=== PATIENT | female | born 1955 | race Two or more races ===

== ENCOUNTER → 2016-12-19 | Outpatient (CLI) | payer OTHER | LOC: BMCIMAGING 12:26 | PROVIDERS: ATTEND Internal Medicine | DX: Z12.31 Encounter for screening mammogram for malignant neoplasm of breast (principal) | CPT/HCPCS: G0202 ==

== ENCOUNTER → 2018-01-29 | Outpatient (CLI) | payer OTHER | LOC: BMCIMAGING 07:38 | PROVIDERS: ATTEND Internal Medicine | DX: Z12.31 Encounter for screening mammogram for malignant neoplasm of breast (principal) ==

== ENCOUNTER 2018-09-28 19:03 | Emergency (ER) | payer OTHER | END 2018-09-28 22:22 | disposition home or self-care (01) ==